=== PATIENT | female | born 1985 | race Caucasian/White ===

== ENCOUNTER → 2017-05-26 | Outpatient (CLI) | payer MEDICAID ==
[~2017-05-26] MED LIST: ALPRAZOLAM1 MG PO; BACTRIM DS 8001 TAB PO; BENTYL10 M1 PO; CELEXA40 MG PO; DOXYCYCLINE HY100 M3 PO; ELOCON0.11 TP; ETODOLAC400 MG PO; EXCEDRIN TENSIO1 CAP PO; LORTAB 5/500 501 TAB PO; MACROBID 100MG100 MG PO; NOMEDS XX; PERCOCET 5/3251 EACH PO; PHENERGAN 25MG.25 MG PR; PROVERA10 MG OR; PYRIDIUM 200MG200 MG PO; SUBUTEX8 M1 SL; VICODIN 5/500 T1 TAB PO
--- NOTE | 2017-05-27 10:21 | RADIOLOGY REPORT PS360 ---
US EXTREMITIES LT LIMITED Ultrasound left thigh HISTORY: LT THIGH MASS palpable area mid left thigh noted 8 months. Patient Age: 31 years: Female Ordering Physician: Max Baker MD TECHNIQUE: Ultrasound thyroid COMPARISON :None FINDINGS Focal hypoechoic area just beneath the skin surface. This measures up to nearly 9 mm length on my measurement x 5.5 mm AP x 8 mm transverse... There is is backwall and through transmission which could reflect a debris-filled cyst/thick proteinaceous cyst such such as can be seen with some sebaceous cyst type feature. Hypoechoic solid nodule could yield a similar appearance .. I doubt this material would freely aspirate but a be easily accessible to core biopsy which could be offered if it should be a be a concern clinically. Favor more likely benign by ultrasound. Transverse measurement greater than its height with well-defined margins in the subcutaneous region more likely benign... At no increase color Doppler flow IMPRESSION. There is a discrete hypoechoic nodule seen just beneath the skin subcutaneous region. It measures up to 9 mm length x 5 mm AP More likely thick debris-filled proteinaceous cystic mass, although could reflect a homogeneous solid nodule . Most likely benign but could be easily biopsied with ultrasound guided core biopsy if so desired to confirm such.
== END ==
LOC: RAD 09:30
DX: R22.42 Localized swelling, mass and lump, left lower limb (principal)